=== PATIENT | male | born 1980 | race African-American/Black ===

== ENCOUNTER 2022-02-08 23:49 | Emergency (ER) | payer OTHER ==
[2022-02-09] MEDS ORDERED: Amoxicillin/Potassium Clav 875 MG TAB ONE (00:23)
[2022-02-09] MEDS ORDERED: Lidocaine 1% 20 ML MDV ONE (00:23)
[2022-02-09] MEDS ORDERED: Boostrix 0.5 ML (Tdap) VIAL ONE (00:23)
[2022-02-09] MEDS ORDERED: Bacitracin 1 PK ONE (00:23)
[2022-02-09] MEDS ORDERED: traMADol HCl 50 MG TAB ONE (00:30)
== END 2022-02-09 01:00 | disposition home or self-care (01) ==
LOC: NAV ERS 23:49
DX: S01.21XA Laceration without foreign body of nose, initial encounter (principal); S01.511A Laceration without foreign body of lip, initial encounter; S60.416A Abrasion of right little finger, initial encounter; K21.9 Gastro-esophageal reflux disease without esophagitis; W54.0XXA Bitten by dog, initial encounter; Y92.096 Garden or yard of other non-institutional residence as the place of occurrence of the external cause; Z23 Encounter for immunization; Z79.899 Other long term (current) drug therapy
CPT/HCPCS: 12011; 90471; 90715